=== PATIENT | female | born 1995 | race Caucasian/White ===

== ENCOUNTER 2016-10-07 18:13 | Emergency (ER) | payer OTHER ==
[~2016-10-07] VITALS: Ht 165.1 cm; Wt 50.8 kg
[~2016-10-07 18:13] MED LIST: BACTRIM DS TAB1 EACH PO; CYCLOBENZAPRINE5 M2 PO; FIORICET 325 MG1 TAB PO; FLEXERIL10 MG PO; LOESTRIN FE 1.51 TAB PO; MOBIC 15MG15 MG PO; MOTRIN 600 MG600 MG PO; PHENERGAN25 M1 PO; REGLAN10 MG PO
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
[2016-10-07 21:22] VITALS: BP 107/59
[2016-10-07] MEDS ORDERED: ATIVAN0.5 M1 PO (21:23)
[2016-10-07] MEDS ORDERED: DICLOFENAC SODI75 M2 PO (21:23)
== END 2016-10-07 21:34 ==
LOC: ERH 18:13
DX: G44.209 Tension-type headache, unspecified, not intractable (principal); M54.5 Low back pain
CPT/HCPCS: 96372; J1885

== ENCOUNTER 2016-11-16 21:43 | Emergency (ER) | payer OTHER ==
[~2016-11-16] VITALS: Ht 165.1 cm; Wt 52.2 kg
[~2016-11-16 21:43] MED LIST changes: +ATIVAN0.5 M1 PO; +DICLOFENAC SODI75 M2 PO
[2016-11-16 22:35] LABS: ABSOLUTE BASOPHIL COUNT 0 /CUMM (0.0-0.2); ABSOLUTE EOSINOPHIL COUNT 0.2 /CUMM (0.0-0.7); ABSOLUTE GRANULOCYTE CT 2.3 /CUMM (1.4-6.5); ABSOLUTE MONOCYTE COUNT 0.5 /CUMM (0.10-0.60); BASOPHIL % 0.4 % (0.0-2.0); EOSINOPHIL % 2.6 % (0-5); GRANULOCYTE % 38.7 % (42.2-75.2); HEMATOCRIT 36.2 % (37-47); MEAN CORPUSCULAR HGB 30.4 PG (27.0-31.0); MEAN CORPUSCULAR HGB CONC 33.7 G/DL (33.0-37.0); MEAN CORPUSCULAR VOLUME 90.2 FL (81.0-99.0); MEAN PLATELET VOLUME 7.8 FL (7.4-10.4); PLATELET COUNT 281 /CUMM (130-400); RBC DISTRIBUTION WIDTH 12.5 % (11.5-14.5); RED BLOOD CELL CT 4.02 /CUMM (4.20-5.40); WHITE BLOOD CELL COUNT 5.9 /CUMM (4.8-10.8)
--- NOTE | 2016-11-16 22:37 | ED GI/GU/ABDOMINAL COMPLAINT ---
History of Present Illness General Chief Complaint: Abdominal Pain/Flank Pain Stated Complaint: PT IS HAVING ABDOMINAL PAIN ON THE RGT SIDE Source: patient Exam Limitations: no limitations Vital Signs & Intake/Output Vital Signs & Intake/Output Vital Signs Date Time Temp Pulse Resp B/P Pulse O2 O2 Flow FiO2 Ox Delivery Rate 11/17 0009 98.7 70 16 108/56 99 11/16 2146 98.0 75 18 110/71 100 Room Air ED Intake and Output 11/17 0000 11/16 1200 Intake Total Output Total Balance Patient 115 lb Weight Allergies Coded Allergies: almond (Severe, THROAT CLOSURE 11/17/15) Penicillins (Mild, hives 11/17/15) latex (Mild, hives 11/17/15) Uncoded Allergies: cottonseed oil (Mild, redness 10/27/15) Reconcile Medications Diclofenac Sodium 75 MG TABLET.DR 1 TAB PO BID PRN PAIN Lorazepam (Ativan) 0.5 MG TABLET 1 TAB PO Q8 PRN back spasms Triage Note: PT TO ED C/O RLQ PAIN FOR 3 DAYS. STARTED OFF AND ON, NOW CONSTANT SINCE THIS AM. +NAUSEA/DIARRHEA DENIES VOMITTING. AFEBRILE IN TRIAGE. 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 DENIES UTI S/S. LAST MENSES WAS 10/22 Triage Nurses Notes Reviewed? yes ? n Is pt currently ? No Onset: Abrupt Duration: day(s): (few), constant, continues in ED Quality/Severity: moderate, sharpness, severe Location: right lower quadrant Radiation: no radiation Activities at Onset: none No Modifying Factors: none HPI: 20-year-old female comes into emergency room with complaints of right lower abdominal pain has been going on for past few days. Denies any fever or chills. Slight decrease in appetite today. Denies any urinary symptoms vaginal discharge or changes in bowel movement. Denies any other associated symptoms. (CATARINA TREADWELL) Past History Travel History Traveled to [place] past 21 day No Medical History Any Pertinent Medical History? 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 No (CATARINA TREADWELL) Review of Systems Review of Systems Constitutional: Reports: no symptoms. EENTM: Reports: no symptoms. Respiratory: Reports: no symptoms. Cardiovascular: Reports: no symptoms. GI: Reports: see HPI. Genitourinary: Reports: no symptoms. Musculoskeletal: Reports: no symptoms. Skin: Reports: no symptoms. Neurological/Psychological: Reports: no symptoms. Hematologic/Endocrine: Reports: no symptoms. Immunologic/Allergic: Reports: no symptoms. All Other Systems: Reviewed and Negative (CATARINA TREADWELL) Physical Exam Physical Exam General Appearance: well developed/nourished, no apparent distress, alert Head: atraumatic, normal appearance Eyes: Bilateral: normal appearance. Ears, Nose, Throat, Mouth: hearing grossly normal, moist mucous membrane Neck: normal inspection, full range of motion Respiratory: normal breath sounds, no respiratory distress Cardiovascular: regular rate/rhythm Gastrointestinal: soft Back: normal inspection, normal range of motion Extremities: normal range of motion Neurologic/Psych: awake, alert, oriented x 3, normal gait, normal mood/affect Skin: intact, normal color Core Measures ACS in differential dx? No Severe Sepsis Present: No Septic Shock Present: No (CATARINA TREADWELL) Progress Differential Diagnosis: appendicitis, bowel obstruction, colon cancer, cholecystitis, diverticulitis, ectopic , intrauterine , kidney stone, ovarian cyst, ovarian torsion, PID/cervicitis, UTI/pyelo Plan of Care: Orders Procedure Date/time Status URINALYSIS 11/16 2152 Complete LIPASE 11/16 2152 Complete HUMAN BETA HCG SCREEN 11/16 2152 Complete COMPREHENSIVE METABOLIC PANEL 11/16 2152 Complete CBC WITHOUT DIFFERENTIAL 11/16 2152 Complete AMYLASE 11/16 2152 Complete Laboratory Tests 11/16/16 2310: Urine Color STRAW, Urine Clarity CLEAR, Urine pH 7.5, Ur Specific [place] 1.015, Urine Protein NEG, Urine Ketones NEG, Urine Nitrite NEG, Urine Bilirubin NEG, Urine Urobilinogen 1.0, Ur Leukocyte Esterase NEG, Ur Microscopic EXAM NOT REQUIRED, Urine Hemoglobin NEG, Urine Glucose NEG 11/16/16 2204: Anion Gap 10, Estimated GFR > 60, BUN/Creatinine Ratio 13.6, Glucose 101 H, Calcium 9.0, Total Bilirubin 0.5, AST 18, ALT 25, Alkaline Phosphatase 40, Total Protein 7.2, Albumin 4.2, Globulin 3.0, Albumin/Globulin Ratio 1.4, Amylase 75, Lipase 159, Total Beta HCG NEGATIVE, CBC w Diff NO MAN DIFF REQ, RBC 4.02 L, MCV 90.2, MCH 30.4, RDW 12.5, MPV 7.8, Gran % 38.7 L, Lymphocytes % 50.3, Monocytes % 8.0, Eosinophils % 2.6, Basophils % 0.4, Absolute Granulocytes 2.3, Absolute Lymphocytes 3.0, Absolute Monocytes 0.5, Absolute Eosinophils 0.2, Absolute Basophils 0, PUBS MCHC 33.7 Diagnostic Imaging: Viewed by Me: CT Scan. Discussed w/RAD: CT Scan. Radiology Impression: EXAM TYPE: CAT - CT ABD & PELVIS W IV CONTRAST EXAMINATION : CT ABDOMEN AND PELVIS WITH CONTRAST CLINICAL INFORMATION: Right lower quadrant abdominal pain. Evaluate for acute appendicitis. COMPARISON: CT abdomen and pelvis 04/05/2011. TECHNIQUE: Multidetector volumetric imaging was performed of the abdomen and pelvis before and after the IV administration of 95 mL of Optiray 320 intravenous contrast. Sagittal and coronal reformatted images were obtained on the technologist's workstation. DLP: 258 mGy-cm FINDINGS: LUNG BASES : The visualized lung bases are unremarkable. LIVER, GALLBLADDER, AND BILIARY TREE: The liver is normal in size, shape, and attenuation. No focal hepatic lesion or biliary ductal dilatation is present. The gallbladder is unremarkable with no evidence of radiopaque gallstones, gallbladder wall thickening, or obvious pericholecystic inflammatory changes. PANCREAS: Unremarkable. SPLEEN: Unremarkable. ADRENAL GLANDS: Unremarkable. KIDNEYS AND URETERS: The kidneys are normal in size and enhance homogeneously, without focal lesions. There is no appreciable nephrolithiasis or hydroureteronephrosis of either kidney or renal collecting system. No ureteral stones are identified. BLADDER: Unremarkable. GASTROINTESTINAL TRACT: Normal anatomic orientation of the stomach relative to the duodenum. Normal caliber of abdominal and pelvic bowel loops, without evidence of obstruction or ileus. No circumferential bowel wall thickening with surrounding inflammatory changes to suggest an underlying infectious or inflammatory enterocolitis. Normal-appearing appendix within the right lower quadrant of the abdomen. No organizing intra-abdominal fluid collections or free intraperitoneal air. ABDOMINAL WALL: No significant hernia is appreciated. LYMPH NODES: No significant abdominal or pelvic adenopathy. VASCULAR: Patent abdominal vasculature. Normal course and caliber of the abdominal aorta and its branching vessels, without aneurysmal dilatation. PELVIC VISCERA: Unremarkable. OSSEOUS STRUCTURES: No acute osseous abnormality. Normal alignment of the imaged thoracolumbar spine. IMPRESSION: No acute findings within the abdomen or pelvis to explain patient symptomatology. A normal-appearing appendix is identified within the right lower quadrant of the abdomen. DICTATED BY: JESSICA GUARDADO MD DATE/TIME DICTATED:11/16/162342 BIOINFORMATICS TEAM MEMBER:TRISHA DATE/TIME TRANSCRIBED:11/16/162342 Initial ED EKG: none (LEA PENA,CTAARINA) Departure Departure Disposition: HOME OR SELF CARE Condition: Stable Clinical Impression Primary Impression: Abdominal pain Referrals: HARRISON MALLORY,ESTEBAN Mann (PCP/Family) Additional Instructions: Follow-up with primary care doctor. Return if any other concerns worsening symptoms. Take ibuprofen as needed for pain at home. Please go over all results of today's visit with your primary care doctor. Contact your primary care doctor to let them know you were here in the emergency room. There may be nonspecific findings which may not be related to your visit today here in the emergency room but may require further evaluation and chronic monitoring by your primary care doctor. If you had a laceration today the chance of foreign body always remains. You should follow-up with your primary care doctor for recheck in 3-5 days for a wound check. If you had an x-ray done there is a chance that a fracture could have been missed on initial read and you should follow-up with your primary care doctor for repeat x-rays if symptoms persist. If your blood pressure was elevated here in the emergency room please have rechecked by her primary care doctor within the next 48 hours by your primary care doctor. If you were prescribed a narcotic here in the emergency room or any type of controlled substances you're not allowed to drive while taking this medication or operate any type of heavy machinery. Narcotics can make you feel lightheaded dizziness nausea and can cause constipation. You may need to moss picker a stool softener. Thank you for choosing [facility] emergency room. Please return to the emergency room immediately if you have any other concerns worsening of symptoms. Departure Forms: Customer Survey General Discharge Information Comments 11/17/2016 12:02:16 AM Patient clinically looks well. No evidence of appendicitis. Resting comfortably in room in no apparent distress upon discharge. Follow-up with primary care doctor. Afebrile. No white count. No acute abdomen on exam. (CATARINA TREADWELL) PA/CAR AND YARD SUPERVISOR Co-Sign Statement Statement: ED Attending supervision documentation- [] I saw and evaluated the patient. I have also reviewed all the pertinent lab results and diagnostic results. I agree with the findings and the plan of care as documented in the PA's/CAR AND YARD SUPERVISOR's documentation. x I have reviewed the ED Record and agree with the PA's/CAR AND YARD SUPERVISOR's documentation. [] Additions or exceptions (if any) to the PAs/CAR AND YARD SUPERVISOR's note and plan are summarized below: [] (CHELLE MALLORY,ANTONINO)
--- NOTE | 2016-11-16 23:50 | CT SCAN REPORT ---
EXAMINATION: CT ABDOMEN AND PELVIS WITH CONTRAST CLINICAL INFORMATION: Right lower quadrant abdominal pain. Evaluate for acute appendicitis. COMPARISON: CT abdomen and pelvis 04/05/2011. TECHNIQUE: Multidetector volumetric imaging was performed of the abdomen and pelvis before and after the IV administration of 95 mL of Optiray 320 intravenous contrast. Sagittal and coronal reformatted images were obtained on the technologist's workstation. DLP: 258 mGy-cm FINDINGS: LUNG BASES: The visualized lung bases are unremarkable. LIVER, GALLBLADDER, AND BILIARY TREE: The liver is normal in size, shape, and attenuation. No focal hepatic lesion or biliary ductal dilatation is present. The gallbladder is unremarkable with no evidence of radiopaque gallstones, gallbladder wall thickening, or obvious pericholecystic inflammatory changes. PANCREAS: Unremarkable. SPLEEN: Unremarkable. ADRENAL GLANDS: Unremarkable. KIDNEYS AND URETERS: The kidneys are normal in size and enhance homogeneously, without focal lesions. There is no appreciable nephrolithiasis or hydroureteronephrosis of either kidney or renal collecting system. No ureteral stones are identified. BLADDER: Unremarkable. GASTROINTESTINAL TRACT: Normal anatomic orientation of the stomach relative to the duodenum. Normal caliber of abdominal and pelvic bowel loops, without evidence of obstruction or ileus. No circumferential bowel wall thickening with surrounding inflammatory changes to suggest an underlying infectious or inflammatory enterocolitis. Normal-appearing appendix within the right lower quadrant of the abdomen. No organizing intra-abdominal fluid collections or free intraperitoneal air. ABDOMINAL WALL: No significant hernia is appreciated. LYMPH NODES: No significant abdominal or pelvic adenopathy. VASCULAR: Patent abdominal vasculature. Normal course and caliber of the abdominal aorta and its branching vessels, without aneurysmal dilatation. PELVIC VISCERA: Unremarkable. OSSEOUS STRUCTURES: No acute osseous abnormality. Normal alignment of the imaged thoracolumbar spine. IMPRESSION: No acute findings within the abdomen or pelvis to explain patient symptomatology. A normal-appearing appendix is identified within the right lower quadrant of the abdomen.
[2016-11-17 00:09] VITALS: BP 108/56
== END 2016-11-17 00:10 ==
LOC: ERH 21:43
PROVIDERS: Emergency Medicine
DX: R10.31 Right lower quadrant pain (principal)
CPT/HCPCS: 74177; 81003